=== PATIENT | female | born 1930 | race Caucasian/White ===

== ENCOUNTER 2018-09-03 11:02 | Outpatient (RCR) | payer MEDICARE ==
[~2018-09-03 11:02] MED LIST: ESTROGEN; MED FOR BLADDER; MED FOR HPTN; PREDNISONE; VICODIN; [UNRECOGNIZED DRUG - REMARK]
== END 2018-09-22 11:20 | disposition home or self-care (01) ==
PROVIDERS: ATTEND Orthopaedic Surgery Sports Medicine
DX: M50.30 Other cervical disc degeneration, unspecified cervical region (principal); M51.36 Other intervertebral disc degeneration, lumbar region

== ENCOUNTER 2022-04-21 19:41 | Inpatient (IN) | payer MEDICARE ==
[~2022-04-21] VITALS: Ht 147.3 cm; Wt 55.7 kg
[2022-04-21] VITALS (8 sets, daily range): BP systolic 106–163; BP diastolic 64–107
[2022-04-21] MEDS ORDERED: ONDANSETRON 4 MG (ZOFRAN) ORAL DISSOLVE TAB PO PRN (20:00)
[2022-04-21] MEDS ORDERED: ANTACID SUSP 30 ML UDC (MYLANTA) PO PRN (20:00)
[2022-04-21] MEDS ORDERED: diphenhydrAMINE 25 MG TAB (BENADRYL) PO PRN (20:00)
[2022-04-21] MEDS ORDERED: MELATONIN 3 MG TABLET PO PRN (20:00)
[2022-04-21] MEDS ORDERED: BISACODYL 10 MG SUPP (DULCOLAX) PR PRN (20:00)
[2022-04-21] MEDS ORDERED: polyethylene glycoL POWDER 17 GM (MIRALAX) PACK PO PRN (20:00)
[2022-04-21] MEDS ORDERED: diphenhydrAMINE 50 MG/ML INJ (BENADRYL) IVP PRN (20:00)
[2022-04-21] MEDS ORDERED: LACTULOSE SYRUP 10GM/15ML (ENULOSE) 30ML UDC PO PRN (20:00)
[2022-04-21] MEDS ORDERED: CALCIUM CARBONATE 500 MG (TUMS) TAB.CHEW PO PRN (20:00)
[2022-04-21] MEDS ORDERED: ONDANSETRON 4 MG/2 ML (SDV) Z0FRAN IV PRN (20:00)
[2022-04-21] MEDS ORDERED: MILK OF MAGNESIA 400 MG/5 ML 30 ML UDC PO PRN (20:00)
--- NOTE | 2022-04-21 20:10 | History & Physical ---
History of Present Illness HPI/Chief Complaint CC: Complete heart block HPI: This is an 89yoWF clinic patient of Dr Rueda who arrives from [facility] ER with hypotension and syncope at home. Apparently these symptoms have been ongoing for several days until she came to ER and was found to have AF with bradycardia and then EKG was evaluated to have complete heart block. HR was 33 received atropine with improvement of HR. Patient has arrived for Cardiology care. Source: patient Exam Limitations: clinical condition Date Seen 04/21/22 Time Seen by a Provider: 21:30 Attending Physician Young Guidry Jr, MD PCP Admitting Physician: Edyta Zheng DO Attending Physician: Edyta Zheng DO Referring Physician Date of Admission Home Medications & Allergies Home Medications Reviewed patient Home Medication Reconciliation performed by pharmacy medication reconciliations plating technician and/or nursing. Patients Allergies have been reviewed. Allergies Allergies Coded Allergies No Known Drug Allergies ([id number]) Past Puzysyb-Ezwhld-Rpyzik Hx Past Med/Social Hx: Reviewed Nursing Past Med/Soc Hx, Reviewed and Corrections made Patient Social History Marrital Status: Employed/Student: retired Alcohol Use: Denies Use Smoking Status: Never a Smoker Past Medical History Cardiac: Atrial Fibrillation, High Cholesterol, Hypertension Neurological: Dementia Genitourinary: Bladder Infection Review of Systems Constitutional: see HPI, dizziness, malaise, weakness EENTM: no symptoms reported Respiratory: no symptoms reported Cardiovascular: palpitations Gastrointestinal: no symptoms reported Genitourinary: no symptoms reported Musculoskeletal: no symptoms reported Skin: no symptoms reported Psychiatric/Neurological: Depressed All Other Systems Reviewed Negative Unless Noted: Yes Physical Exam Physical Exam Vital Signs Capillary Refill : Height, Weight, BMI Height: '" Weight: lbs. oz. kg; BMI Method: General Appearance: No Apparent Distress, WD/WN, Anxious, Chronically ill, Thin Eyes: Bilateral Eye Normal Inspection, Bilateral Eye PERRL HEENT: PERRL/EOMI, Normal ENT Inspection, Pharynx Normal Neck: Full Range of Motion, Normal Inspection, Non Tender, Supple, Carotid Bruit Respiratory: Chest Non Tender, Lungs Clear, Normal Breath Sounds, No Accessory Muscle Use, No Respiratory Distress Cardiovascular: No Edema, No Gallop, No JVD, No Murmur, Normal Peripheral Pulses, Bradycardia, Irregularly Irregular Gastrointestinal: Normal Bowel Sounds, No Organomegaly, No Pulsatile Mass, Non Tender, Soft Back: Normal Inspection, No CVA Tenderness, No Vertebral Tenderness Extremity: Normal Capillary Refill, Normal Inspection, Normal Range of Motion, Non Tender, No Calf Tenderness, No Pedal Edema Neurologic/Psychiatric: Alert, Oriented x3, No Motor/Sensory Deficits, Normal Mood/Affect Skin: Normal Color, Warm/Dry Lymphatic: No Adenopathy Results Results/Procedures Labs Patient resulted labs reviewed. Assessment/Plan Admission Diagnosis Assessment: AF with bradycardia and complete heart block Hypotension resolved with IVF at [facility] ER Debility Dementia Advanced age Plan: Lovenox Tely Cards consult Admission Status: Inpatient Order (span 2 midnights) Reason for Inpatient Admission: complete heart block Diagnosis/Problems Diagnosis/Problems (1) Heart block (2) Bradycardia EDYTA ZHENG DO Apr 21, 2022 20:10
[2022-04-21] MEDS ORDERED: ENOXAPARIN 60 MG/0.6 ML (LOVENOX) SYR SC ONE (22:30)
[2022-04-21] MEDS: NS IV 1000 ML 1,000 ML IV SCH (22:31)
[2022-04-21] MEDS: SENNOSIDES 8.6 MG (SENOKOT) TAB PO SCH (22:31)
[2022-04-21] MEDS: DOCUSATE SODIUM 100 MG (COLACE) CAP PO SCH (22:31)
[2022-04-21] MEDS: ACETAMINOPHEN 325 MG TABLET PO PRN (22:32)
[2022-04-21] MEDS ORDERED: RT-ALBUTEROL SULF 2.5 MG/3 ML PRE-MIX VIAL INH PRN (22:45)
[2022-04-21] MEDS: morphine INJ 4 MG/ML 1 ML (VIAL/SYRINGE) IV PRN (23:58)
[2022-04-22] VITALS (19 sets, daily range): BP systolic 98–177; BP diastolic 53–118
--- NOTE | 2022-04-22 05:06 | Progress Note ---
Subjective Date Seen by a Provider: Apr 22, 2022 Time Seen by a Provider: 09:00 Subjective/Events-last exam Pt is doing well Awaiting cardiology plan Heart rate is 63 Son is at the bedside Pt denies any pain Checked meds and labs Review of Systems General: Fatigue, Malaise Objective Exam Last Set of Vital Signs Vital Signs Date Time Temp Pulse Resp B/P (MAP) Pulse Ox O2 Delivery O2 Flow Rate FiO2 04/22/22 02:39 36.7 Room Air 04/22/22 01:00 81 04/22/22 00:00 9 92 04/21/22 22:28 21 Capillary Refill : I&O Intake and Output 04/22/22 00:00 Intake Total 0 ml Output Total 550 ml Balance -550 ml Intake Oral 0 ml Output Urine Total 550 ml Daily Weight Change Unsure General: Alert, Oriented X3, Cooperative, No Acute Distress Lungs: Clear to Auscultation, Normal Air Movement Heart: Other (marva) Neuro: Normal Gait, Normal Speech, Strength at 5/5 X4 Ext, Normal Tone Psych/Mental Status: Mental Status NL, Mood NL Assessment/Plan Assessment/Plan Assess & Plan/Chief Complaint Assessment: AF with bradycardia and complete heart block Hypotension resolved with IVF at [facility] Debility Dementia Advanced age Plan: Lovenox Tely Cards consult Diagnosis/Problems Diagnosis/Problems (1) Heart block (2) Bradycardia ANNABELLA ADAMS DO Apr 22, 2022 05:06
[2022-04-22 05:44] LABS: BASOPHILS % (AUTO) 0 % (0-10); EOSINOPHILS # (AUTO) 0.1 10^3/uL (0.0-0.3); EOSINOPHILS % (AUTO) 1 % (0-10); HEMATOCRIT 38 % (35-52); HEMOGLOBIN 12.7 g/dL (11.5-16.0); LYMPHOCYTES # (AUTO) 1.1 10^3/uL (1.0-4.0); LYMPHOCYTES % (AUTO) 14 % (12-44); MEAN CORPUSCULAR HEMOGLOBIN 32 pg (25-34); MEAN CORPUSCULAR HGB CONC 34 g/dL (32-36); MEAN CORPUSCULAR VOLUME 95 fL (80-99); MEAN PLATELET VOLUME 10.9 fL (9.0-12.2); MONOCYTES # (AUTO) 0.7 10^3/uL (0.0-1.0); MONOCYTES % (AUTO) 9 % (0-12); NEUTROPHILS # (AUTO) 5.8 10^3/uL (1.8-7.8); NEUTROPHILS % (AUTO) 75 % (42-75); PLATELET COUNT 176 10^3/uL (130-400); WHITE BLOOD COUNT 7.7 10^3/uL (4.3-11.0)
[2022-04-22 05:48] LABS: ALBUMIN 3.7 GM/DL (3.2-4.5); BILIRUBIN,TOTAL 0.7 MG/DL (0.1-1.0); CALCIUM 8.4 MG/DL (8.5-10.1); CREATININE SERUM 0.98 MG/DL (0.60-1.30); POTASSIUM 3.9 MMOL/L (3.6-5.0); TOTAL PROTEIN 5.8 GM/DL (6.4-8.2)
[2022-04-22] MEDS: DOCUSATE SODIUM 100 MG (COLACE) CAP PO SCH ×2 (07:51→22:48)
[2022-04-22] MEDS: SENNOSIDES 8.6 MG (SENOKOT) TAB PO SCH ×2 (07:51→22:48)
[2022-04-22] MEDS: ACETAMINOPHEN 325 MG TABLET PO PRN (07:51)
[2022-04-22] MEDS ORDERED: ENOXAPARIN 60 MG/0.6 ML (LOVENOX) SYR SC SCH (08:00)
--- NOTE | 2022-04-22 08:56 | Consultation-Cardiology ---
HPI-Cardiology Cardiology Consultation: Date of Consultation 04/22/22 Date of Admission 04/21/22 Attending Physician Young Guidry Jr, MD Admitting Physician Admitting Physician: Edyta Zheng DO Attending Physician: Edyta Zheng DO Consulting Physician LAURO SWEET JR, MD HPI: Time Seen by a Provider: 08:50 Chief Complaint: REASON FOR CONSULTATION: Bradycardia. I had the pleasure of seeing Patsy on the cardiac stepdown unit at [facility] in [place], [place] today. She normally follows with a corner trimmer operator at [facility] in [place], [place]. She states for the past 3 weeks she has been having a cough with increasing shortness of breath. She has had minimal sputum production. She denies fever, chills or night sweats. She had seen her primary provider but he made her stay in the car. She was not placed on any antibi otics. She has not been vaccinated for the flu or COVID. She was also having increasing weakness. Yesterday her grandson brought her to [facility] emergency room due to severe weakness and the shortness of breath. She was found to have significant bradycardia in the 30s. She was given 1 dose of IV atropine and her heart rate came up into the 60s. Because of the severe bradycardia, she was transferred to our hospital for further treatment and evaluation. She takes all of her medications on her own. She tells me she has been taking diltiazem but there is a question as to whether or not this was last filled in September 2021. From time to time she will get some fleeting chest pains across the left and right side of her chest. She also has paroxysmal nocturnal dyspnea which sounds as though may be chronic. She denies orthopnea. She has had palpitations for years which mainly bother her at night and feel like her heart is racing. She denies syncope or lower extremity edema. Because of the bradycardia, a cardiology consultation was requested. Certain portions of this document may have been dictated utilizing voice recog nition technology. Inherent to this technology, typographical and grammatical errors may exist. As much as I am diligent to identify and correct these mistakes, some errors may remain in the document. Review of Systems-Cardiology Review of Systems Other comments Review of 10 organ systems is as per the history of present illness, otherwise negative. All Other Systems Reviewed Negative Unless Noted: Yes BBA-Wvkbxy-Xiwjmy Hx Patient Social History Marrital Status: Employed/Student: retired Smoking Status: Never a Smoker Have you traveled recently?: No Alcohol Use?: No Pt feels they are or have been: No Past Medical History PMH As described under Assessment. Family Medical History Family Medical History: Her brother and mother both had heart disease but at an older age. Allergies and Home Medications Allergies Coded Allergies: Penicillins (Verified Allergy, Intermediate, Rash, 04/21/22) Patient Home Medication List Home Medication List Reviewed: Yes [Estrogen] , (Reported) Entered as Reported by: MILAGROS LUTHER on 03/25/09912 [Med For Bladder] , (Reported) Entered as Reported by: MILAGROS LUTHER on 03/25/09912 [Med For Hptn] , (Reported) Entered as Reported by: MILAGROS LUTHER on 03/25/09912 [Prednisone] , (Reported) Entered as Reported by: MILAGROS LUTHER on 03/25/09914 [Vicodin] , (Reported) Entered as Reported by: MILAGROS LUTHER on 03/25/09913 Exam Vital Signs Vital Signs Date Time Temp Pulse Resp B/P (MAP) Pulse Ox O2 Delivery O2 Flow Rate FiO2 04/22/22 08:26 92 Room Air 0.00 04/22/22 07:57 36.5 64 14 136/70 (92) 04/21/22 22:28 21 Physical Exam General: Alert. No acute distress. Well nourished and appears stated age. Eye: Extraocular movements are intact. Conjunctivae are clear. There are no xanthelasma. HENT: Normocephalic. Atraumatic. Carotid pulsations 2/2 without bruits. Neck: Jugular venous pressure does not appear elevated. No thyromegaly a ppreciated. Respiratory: Lungs are clear to auscultation. Respirations are non-labored. Breath sounds are equal. Symmetrical chest wall expansion. Cardiovascular: Normal rate. Irregular rhythm. 2/6 systolic ejection murmur. No gallop. Point of maximal impulse is not appear displaced. Good pulses equal in all extremities. No edema. Gastrointestinal: Soft. Normal bowel sounds. Skin: Skin turgor is normal. There is no pallor. Musculoskeletal: No kyphosis or scoliosis appreciated. Neurologic: Alert and oriented to person, place, time. Cranial nerves 3-12 appear grossly intact. The patient has good motor tone strength in the upper and lower extremities bilaterally. Psychiatric: Cooperative. Appropriate mood & affect. Labs Laboratory Tests Test 04/22/22 05:20 Range/Units White Blood Count 7.7 4.3-11.0 10^3/uL Red Blood Count 3.97 3.80-5.11 10^6/uL Hemoglobin 12.7 11.5-16.0 g/dL Hematocrit 38 35-52 % Mean Corpuscular Volume 95 80-99 fL Mean Corpuscular Hemoglobin 32 25-34 pg Mean Corpuscular Hemoglobin Concent 34 32-36 g/dL Red Cell Distribution Width 13.9 10.0-14.5 % Platelet Count 176 130-400 10^3/uL Mean Platelet Volume 10.9 9.0-12.2 fL Immature Granulocyte % (Auto) 0 % Neutrophils (%) (Auto) 75 42-75 % Lymphocytes (%) (Auto) 14 12-44 % Monocytes (%) (Auto) 9 0-12 % Eosinophils (%) (Auto) 1 0-10 % Basophils (%) (Auto) 0 0-10 % Neutrophils # (Auto) 5.8 1.8-7.8 10^3/uL Lymphocytes # (Auto) 1.1 1.0-4.0 10^3/uL Monocytes # (Auto) 0.7 0.0-1.0 10^3/uL Eosinophils # (Auto) 0.1 0.0-0.3 10^3/uL Basophils # (Auto) 0.0 0.0-0.1 10^3/uL Immature Granulocyte # (Auto) 0.0 0.0-0.1 10^3/uL Sodium Level 140 135-145 MMOL/L Potassium Level 3.9 3.6-5.0 MMOL/L Chloride Level 108 H 98-107 MMOL/L Carbon Dioxide Level 21 21-32 MMOL/L Anion Gap 11 5-14 MMOL/L Blood Urea Nitrogen 12 7-18 MG/DL Creatinine 0.98 0.60-1.30 MG/DL Estimat Glomerular Filtration Rate 55 BUN/Creatinine Ratio 12 Glucose Level 86 70-105 MG/DL Calcium Level 8.4 L 8.5-10.1 MG/DL Corrected Calcium 8.6 8.5-10.1 MG/DL Total Bilirubin 0.7 0.1-1.0 MG/DL Aspartate Amino Transf (AST/SGOT) 17 5-34 U/L Alanine Aminotransferase (ALT/SGPT) 12 0-55 U/L Alkaline Phosphatase 77 40-136 U/L Total Protein 5.8 L 6.4-8.2 GM/DL Albumin 3.7 3.2-4.5 GM/DL Triglycerides Level 73 <150 MG/DL Cholesterol Level 162 < 200 MG/DL LDL Cholesterol Direct 98 1-129 MG/DL VLDL Cholesterol 15 5-40 MG/DL HDL Cholesterol 49 40-60 MG/DL ECG Impression ECG Comment Electrocardiogram from this morning shows atrial fibrillation with a ventricular rate of approximately 70 bpm with right axis deviation and nonspecific ST-T wave changes. Diagnosis/Problems Diagnosis/Problems (1) Complete heart block Assessment & Plan: She appeared to have intermittent complete heart block at the outside hospital. This improved with 1 dose of intravenous atropine. Her heart rates here in our hospital have remained above 50 bpm. This may just be due to diltiazem she was taking at home. I will need our cd technician to verify whether or not she has actually been taking this medication. At this point in time, I do not see any indication for temporary or permanent pacing. (2) Permanent atrial fibrillation Assessment & Plan: She has had atrial fibrillation for a number of years. She has been on Xarelto for stroke prophylaxis and diltiazem for her hypertension. The diltiazem may be causing the bradycardia but I am not completely sure she has been taking this. For the time being, I recommend holding both Xarelto and diltiazem and till we determine whether or not her heart rate recovers without diltiazem. If she has not been taking diltiazem at home, and there is a chance she may need a permanent pacemaker. (3) Primary hypertension Assessment & Plan: She tells me she has been taking diltiazem for her hypertension. As above, due to the bradycardia, I will stop this medication. If she develops recurrent hypertension, I would consider starting an PETER inhibitor or ARB. (4) Shortness of breath Assessment & Plan: Etiology unclear. She has not been vaccinated for the flu or COVID. I had the nurse order both flu test and COVID test. I will also a chest x-ray and echocardiogram. LAURO SWEET JR, MD Apr 22, 2022 08:56
[2022-04-22] MEDS ORDERED: MECL-149 PO (10:25)
[2022-04-22] MEDS ORDERED: DILT180C85 PO (10:25)
[2022-04-22] MEDS ORDERED: DICL100G61 TP (10:25)
[2022-04-22] MEDS ORDERED: OMEP40CA6 PO (10:25)
[2022-04-22] MEDS ORDERED: FURO20TA4 PO (10:25)
[2022-04-22] MEDS ORDERED: FLUO10CA33 PO (10:25)
[2022-04-22] MEDS ORDERED: LORA-404 PO (10:25)
[2022-04-22] MEDS ORDERED: ACHD5005 PO (10:25)
[2022-04-22] MEDS ORDERED: RIVA20TA2 PO (10:25)
[2022-04-22] MEDS ORDERED: ACET-2267 PO (10:25)
[2022-04-22] MEDS: NS IV 1000 ML 1,000 ML IV SCH (12:16)
--- NOTE | 2022-04-22 14:49 | Diagnostic Imaging Report ---
INDICATION: Shortness of breath. PA and lateral chest obtained at 0928 a.m. There is cardiomegaly. There is no focal infiltrate or pneumothorax or pleural fluid. There are chronic appearing increased interstitial markings. IMPRESSION: Cardiomegaly with chronic appearing increased interstitial markings. No overt consolidation or pleural fluid. Dictated by: Dictated on workstation # [id number]
[2022-04-22] MEDS ORDERED: LOSARTAN 50 MG (COZAAR) TAB PO NR (16:30)
[2022-04-22] MEDS: morphine INJ 4 MG/ML 1 ML (VIAL/SYRINGE) IV PRN (16:39)
[2022-04-23] VITALS: BP 142/72
[2022-04-23] MEDS: NS IV 1000 ML 1,000 ML IV SCH ×2 (03:36→04:07)
[2022-04-23 04:00] VITALS: BP_SYST 133; BP_SYST 162; BP_DIAS 73; BP_DIAS 78
[2022-04-23 04:14] VITALS: BP 178/97
[2022-04-23] MEDS ORDERED: LOSARTAN 50 MG (COZAAR) TAB ONE (04:52)
[2022-04-23] MEDS: morphine INJ 4 MG/ML 1 ML (VIAL/SYRINGE) IV PRN (05:01)
[2022-04-23 05:54] LABS: BASOPHILS % (AUTO) 1 % (0-10); EOSINOPHILS # (AUTO) 0.1 10^3/uL (0.0-0.3); EOSINOPHILS % (AUTO) 2 % (0-10); HEMATOCRIT 41 % (35-52); HEMOGLOBIN 13.4 g/dL (11.5-16.0); LYMPHOCYTES # (AUTO) 1.5 10^3/uL (1.0-4.0); LYMPHOCYTES % (AUTO) 34 % (12-44); MEAN CORPUSCULAR HEMOGLOBIN 32 pg (25-34); MEAN CORPUSCULAR HGB CONC 33 g/dL (32-36); MEAN CORPUSCULAR VOLUME 96 fL (80-99); MEAN PLATELET VOLUME 10.6 fL (9.0-12.2); MONOCYTES # (AUTO) 0.4 10^3/uL (0.0-1.0); MONOCYTES % (AUTO) 9 % (0-12); NEUTROPHILS # (AUTO) 2.4 10^3/uL (1.8-7.8); NEUTROPHILS % (AUTO) 56 % (42-75); PLATELET COUNT 185 10^3/uL (130-400); WHITE BLOOD COUNT 4.4 10^3/uL (4.3-11.0)
[2022-04-23 06:21] LABS: ALBUMIN 3.9 GM/DL (3.2-4.5); CALCIUM 8.7 MG/DL (8.5-10.1); CREATININE SERUM 0.9 MG/DL (0.60-1.30); POTASSIUM 3.4 MMOL/L (3.6-5.0); TOTAL PROTEIN 6.2 GM/DL (6.4-8.2)
--- NOTE | 2022-04-23 06:53 | Progress Note ---
Subjective Date Seen by a Provider: Apr 23, 2022 Time Seen by a Provider: 09:00 Objective Exam Last Set of Vital Signs Vital Signs Date Time Temp Pulse Resp B/P (MAP) Pulse Ox O2 Delivery O2 Flow Rate FiO2 04/23/22 04:14 78 18 178/97 (124) 92 Room Air 04/23/22 04:00 36.7 04/22/22 08:26 0.00 04/21/22 22:28 21 Capillary Refill : I&O Intake and Output 04/23/22 00:00 Intake Total 620 ml Output Total 1725 ml Balance -1105 ml Intake Oral 620 ml Output Urine Total 1725 ml Results Lab Laboratory Tests 04/23/22 05:34: White Blood Count 4.4, Red Blood Count 4.21, Hemoglobin 13.4, Hematocrit 41, Mean Corpuscular Volume 96, Mean Corpuscular Hemoglobin 32, Mean Corpuscular Hemoglobin Concent 33, Red Cell Distribution Width 14.4, Platelet Count 185, Mean Platelet Volume 10.6, Immature Granulocyte % (Auto) 0, Neutrophils (%) (Auto) 56, Lymphocytes (%) (Auto) 34, Monocytes (%) (Auto) 9, Eosinophils (%) (A uto) 2, Basophils (%) (Auto) 1, Neutrophils # (Auto) 2.4, Lymphocytes # (Auto) 1.5, Monocytes # (Auto) 0.4, Eosinophils # (Auto) 0.1, Basophils # (Auto) 0.0, Immature Granulocyte # (Auto) 0.0, Sodium Level 144, Potassium Level 3.4L, Chloride Level 112H, Carbon Dioxide Level 21, Anion Gap 11, Blood Urea Nitrogen 10, Creatinine 0.90, Estimat Glomerular Filtration Rate 61, BUN/Creatinine Ratio 11, Glucose Level 90, Calcium Level 8.7, Corrected Calcium 8.8, Total Bilirubin 1.0, Aspartate Amino Transf (AST/SGOT) 16, Alanine Aminotransferase (ALT/SGPT) 10, Alkaline Phosphatase 80, Total Protein 6.2L, Albumin 3.9 Assessment/Plan Assessment/Plan Assess & Plan/Chief Complaint Assessment: AF with bradycardia and complete heart block Hypotension resolved with IVF at [facility] ER Debility Dementia Advanced age Plan: Harvest consult Diagnosis/Problems Diagnosis/Problems (1) Heart block (2) Bradycardia ANNABELLA ADAMS DO Apr 23, 2022 06:53
[2022-04-23] MEDS ORDERED: KCL 10 MEQ TAB (MICRO K) PO SCH (07:00)
[2022-04-23 07:58] VITALS: BP 140/79
[2022-04-23] MEDS: DOCUSATE SODIUM 100 MG (COLACE) CAP PO SCH (09:00)
[2022-04-23] MEDS: SENNOSIDES 8.6 MG (SENOKOT) TAB PO SCH (09:00)
[2022-04-23] MEDS ORDERED: LOSARTAN 50 MG (COZAAR) TAB PO SCH (09:00)
--- NOTE | 2022-04-23 09:46 | Cardiology Progress Note ---
Progress Note-Cardiology Events since last exam Date Seen by Provider: Apr 23, 2022 Time Seen by Provider: 09:46 Events since last exam I am following her due to permanent atrial fibrillation and bradycardia. Her heart rates have improved since stopping diltiazem. Her weakness and fatigue have improved. She would like to go home. She denies chest discomfort, dyspnea at rest, palpitations, syncope, or ankle edema. Certain portions of this document may have been dictated utilizing voice recognition technology. Inherent to this technology, typographical and grammatical errors may exist. As much as I am diligent to identify and correct these mistakes, some errors may remain in the document. Vitals Last set of Vitals Signs Vital Signs 04/21/22 04/22/22 04/23/22 04/23/22 22:28 08:26 07:27 07:58 Temp 37.0 Pulse 61 Resp 21 B/P (MAP) 140/79 (99) Pulse Ox 96 O2 Delivery Room Air O2 Flow Rate 0.00 FiO2 21 Labs Labs Laboratory Tests 04/23/22 05:34 Exam Vital Signs Vital Signs Date Time Temp Pulse Resp B/P (MAP) Pulse Ox O2 Delivery O2 Flow Rate FiO2 04/23/22 07:58 37.0 61 21 140/79 (99) 96 04/23/22 07:27 Room Air 04/22/22 08:26 0.00 04/21/22 22:28 21 Physical Exam General: Alert. No acute distress. Eye: No xanthelasma. HENT: Normocephalic. Neck: Jugular venous pressure does not appear elevated. Respiratory: Lungs are clear to auscultation. Respirations are non-labored. Ramya ath sounds are equal. Symmetrical chest wall expansion. Cardiovascular: Normal rate. Irregular rhythm. 2/6 systolic ejection murmur. No gallop. No edema. Gastrointestinal: Soft. Normal bowel sounds. Skin: Warm. Dry. Neurologic: Alert and oriented to person, place, time. Cranial nerves 3-11 grossly intact. Psychiatric: Cooperative. Appropriate mood & affect. Labs Laboratory Tests Test 04/23/22 05:34 Range/Units White Blood Count 4.4 4.3-11.0 10^3/uL Red Blood Count 4.21 3.80-5.11 10^6/uL Hemoglobin 13.4 11.5-16.0 g/dL Hematocrit 41 35-52 % Mean Corpuscular Volume 96 80-99 fL Mean Corpuscular Hemoglobin 32 25-34 pg Mean Corpuscular Hemoglobin Concent 33 32-36 g/dL Red Cell Distribution Width 14.4 10.0-14.5 % Platelet Count 185 130-400 10^3/uL Mean Platelet Volume 10.6 9.0-12.2 fL Immature Granulocyte % (Auto) 0 % Neutrophils (%) (Auto) 56 42-75 % Lymphocytes (%) (Auto) 34 12-44 % Monocytes (%) (Auto) 9 0-12 % Eosinophils (%) (Auto) 2 0-10 % Basophils (%) (Auto) 1 0-10 % Neutrophils # (Auto) 2.4 1.8-7.8 10^3/uL Lymphocytes # (Auto) 1.5 1.0-4.0 10^3/uL Monocytes # (Auto) 0.4 0.0-1.0 10^3/uL Eosinophils # (Auto) 0.1 0.0-0.3 10^3/uL Basophils # (Auto) 0.0 0.0-0.1 10^3/uL Immature Granulocyte # (Auto) 0.0 0.0-0.1 10^3/uL Sodium Level 144 135-145 MMOL/L Potassium Level 3.4 L 3.6-5.0 MMOL/L Chloride Level 112 H 98-107 MMOL/L Carbon Dioxide Level 21 21-32 MMOL/L Anion Gap 11 5-14 MMOL/L Blood Urea Nitrogen 10 7-18 MG/DL Creatinine 0.90 0.60-1.30 MG/DL Estimat Glomerular Filtration Rate 61 BUN/Creatinine Ratio 11 Glucose Level 90 70-105 MG/DL Calcium Level 8.7 8.5-10.1 MG/DL Corrected Calcium 8.8 8.5-10.1 MG/DL Total Bilirubin 1.0 0.1-1.0 MG/DL Aspartate Amino Transf (AST/SGOT) 16 5-34 U/L Alanine Aminotransferase (ALT/SGPT) 10 0-55 U/L Alkaline Phosphatase 80 40-136 U/L Total Protein 6.2 L 6.4-8.2 GM/DL Albumin 3.9 3.2-4.5 GM/DL Diagnosis/Problems Diagnosis/Problems (1) Complete heart block Assessment & Plan: She appeared to have intermittent complete heart block at the outside hospital. This improved with 1 dose of intravenous atropine at the outside ER. Her heart rates here in our hospital have remained above 50 bpm. This may just be due to diltiazem she was taking at home. Her diltiazem has been discontinued. She should not take this any longer. I explained this to the patient and her daughter was at the bedside this morning. (2) Permanent atrial fibrillation Assessment & Plan: She has had atrial fibrillation for a number of years. She has been on Xarelto for stroke prophylaxis and diltiazem for her hypertension. As above, her bradycardia resolved when the diltiazem was discontinued. She has not had any significant tachycardia since stopping the diltiazem. From a cardiac standpoint, she can be discharged home. She should follow-up with her regular furniture upholsterer apprentice in approximately 1 month. (3) Primary hypertension Assessment & Plan: She tells me she has been taking diltiazem for her hypertension. As above, due to the bradycardia, I stopped this medication. She did develop hypertension when the diltiazem was stopped and I have started her on intermediate dose losartan. I sent a prescription for this to her regular outpatient pharmacy. (4) Shortness of breath Assessment & Plan: Etiology unclear. She has not been vaccinated for the flu or COVID. I ordered both flu test and COVID test on 04/22 and it appears as though these may not have been done. I have asked her nurse from today to send these off to the lab. Her chest x-ray did not show any evidence of heart failure or infiltrate. LAURO SWEET JR, MD Apr 23, 2022 09:46
[2022-04-23] MEDS ORDERED: LOSA50TA63 PO (09:51)
--- NOTE | 2022-04-23 10:14 | Discharge Summary ---
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 Hypotension [place] [facility] Debility Dementia Advanced age Discharge Summary Discharge Physical Examination Allergies: Coded Allergies: Penicillins (Verified Allergy, Intermediate, Rash, 04/21/22) Vitals & I&Os Vital Signs Date Time Temp Pulse Resp B/P (MAP) Pulse Ox O2 Delivery O2 Flow Rate FiO2 04/23/22 12:15 165/87 04/23/22 08:00 97 Room Air 04/23/22 07:58 37.0 61 21 04/22/22 08:26 0.00 04/21/22 22:28 21 General Appearance: Alert, Oriented X3, Cooperative Respiratory: Clear to Auscultation Psych/Mental Status: Mental Status NL Hospital Course Was the Problem List Reviewed?: Yes Pt had an uneventful hospital course. She was admitted for severe bradycardia, syncope, and what appeared to be complete heart block. Pt was supported. Pt was taken off Diltiazem. Cardiology Dr. Vaughn evaluated her. Echocardiogram was reviewed. Pt was doing very well and discharged in improved condition. Labs (last 24 hrs) Laboratory Tests 04/22/22 05:20: White Blood Count 7.7, Red Blood Count 3.97, Hemoglobin 12.7, Hematocrit 38, Mean Corpuscular Volume 95, Mean Corpuscular Hemoglobin 32, Mean Corpuscular Hemoglobin Concent 34, Red Cell Distribution Width 13.9, Platelet Count 176, Mean Platelet Volume 10.9, Immature Granulocyte % (Auto) 0, Neutrophils (%) (Auto) 75, Lymphocytes (%) (Auto) 14, Monocytes (%) (Auto) 9, Eosinophils (%) (Auto) 1, Basophils (%) (Auto) 0, Neutrophils # (Auto) 5.8, Lymphocytes # (Auto) 1.1, Monocytes # (Auto) 0.7, Eosinophils # (Auto) 0.1, Basophils # (Auto) 0.0, Immature Granulocyte # (Auto) 0.0, Sodium Level 140, Potassium Level 3.9, Chloride Level 108H, Carbon Dioxide Level 21, Anion Gap 11, Blood Urea Nitrogen 12, Creatinine 0.98, Estimat Glomerular Filtration Rate 55, BUN/Creatinine Ratio 12, Glucose Level 86, Calcium Level 8.4L, Corrected Calcium 8.6, Total Bilirubin 0.7, Aspartate Amino Transf (AST/SGOT) 17, Alanine Aminotransferase (ALT/SGPT) 12, Alkaline Phosphatase 77, Total Protein 5.8L, Albumin 3.7, Triglycerides Level 73, Cholesterol Level 162, LDL Cholesterol Direct 98, VLDL Cholesterol 15, HDL Cholesterol 49, Thyroid Stimulating Hormone (TSH) 2.58 04/23/22 05:34: White Blood Count 4.4, Red Blood Count 4.21, Hemoglobin 13.4, Hematocrit 41, Mean Corpuscular Volume 96, Mean Corpuscular Hemoglobin 32, Mean Corpuscular Hemoglobin Concent 33, Red Cell Distribution Width 14.4, Platelet Count 185, Mean Platelet Volume 10.6, Immature Granulocyte % (Auto) 0, Neutrophils (%) (Auto) 56, Lymphocytes (%) (Auto) 34, Monocytes (%) (Auto) 9, Eosinophils (%) (Auto) 2, Basophils (%) (Auto) 1, Neutrophils # (Auto) 2.4, Lymphocytes # (Auto) 1.5, Monocytes # (Auto) 0.4, Eosinophils # (Auto) 0.1, Basophils # (Auto) 0.0, Immature Granulocyte # (Auto) 0.0, Sodium Level 144, Potassium Level 3.4L, Chloride Level 112H, Carbon Dioxide Level 21, Anion Gap 11, Blood Urea Nitrogen 10, Creatinine 0.90, Estimat Glomerular Filtration Rate 61, BUN/Creatinine Ratio 11, Glucose Level 90, Calcium Level 8.7, Corrected Calcium 8.8, Total Bilirubin 1.0, Aspartate Amino Transf (AST/SGOT) 16, Alanine Aminotransferase (ALT/SGPT) 10, Alkaline Phosphatase 80, Total Protein 6.2L, Albumin 3.9 Pending Labs Laboratory Tests 04/22/22 05:20: White Blood Count 7.7, Red Blood Count 3.97, Hemoglobin 12.7, Hematocrit 38, Mean Corpuscular Volume 95, Mean Corpuscular Hemoglobin 32, Mean Corpuscular Hemoglobin Concent 34, Red Cell Distribution Width 13.9, Platelet Count 176, Mean Platelet Volume 10.9, Immature Granulocyte % (Auto) 0, Neutrophils (%) (Auto) 75, Lymphocytes (%) (Auto) 14, Monocytes (%) (Auto) 9, Eosinophils (%) (Auto) 1, Basophils (%) (Auto) 0, Neutrophils # (Auto) 5.8, Lymphocytes # (Auto) 1.1, Monocytes # (Auto) 0.7, Eosinophils # (Auto) 0.1, Basophils # (Auto) 0.0, Immature Granulocyte # (Auto) 0.0, Sodium Level 140, Potassium Level 3.9, Chloride Level 108, Carbon Dioxide Level 21, Anion Gap 11, Blood Urea Nitrogen 12, Creatinine 0.98, Estimat Glomerular Filtration Rate 55, BUN/Creatinine Ratio 12, Glucose Level 86, Calcium Level 8.4, Corrected Calcium 8.6, Total Bilirubin 0.7, Aspartate Amino Transf (AST/SGOT) 17, Alanine Aminotransferase (ALT/SGPT) 12, Alkaline Phosphatase 77, Total Protein 5.8, Albumin 3.7, Triglycerides Level 73, Cholesterol Level 162, LDL Cholesterol Direct 98, VLDL Cholesterol 15, HDL Cholesterol 49, Thyroid Stimulating Hormone (TSH) 2.58 04/23/22 05:34: White Blood Count 4.4, Red Blood Count 4.21, Hemoglobin 13.4, Hematocrit 41, Mean Corpuscular Volume 96, Mean Corpuscular Hemoglobin 32, Mean Corpuscular Hemoglobin Concent 33, Red Cell Distribution Width 14.4, Platelet Count 185, Mean Platelet Volume 10.6, Immature Granulocyte % (Auto) 0, Neutrophils (%) (Auto) 56, Lymphocytes (%) (Auto) 34, Monocytes (%) (Auto) 9, Eosinophils (%) (Auto) 2, Basophils (%) (Auto) 1, Neutrophils # (Auto) 2.4, Lymphocytes # (Auto) 1.5, Monocytes # (Auto) 0.4, Eosinophils # (Auto) 0.1, Basophils # (Auto) 0.0, Immature Granulocyte # (Auto) 0.0, Sodium Level 144, Potassium Level 3.4, Chloride Level 112, Carbon Dioxide Level 21, Anion Gap 11, Blood Urea Nitrogen 10, Creatinine 0.90, Estimat Glomerular Filtration Rate 61, BUN/Creatinine Ratio 11, Glucose Level 90, Calcium Level 8.7, Corrected Calcium 8.8, Total Bilirubin 1.0, Aspartate Amino Transf (AST/SGOT) 16, Alanine Aminotransferase (ALT/SGPT) 10, Alkaline Phosphatase 80, Total Protein 6.2, Albumin 3.9 Discharge Home Medications: Active Scripts Active Losartan Potassium 50 Mg Tablet 50 Mg PO DAILY Reported Arthritis Pain (Diclofenac Sodium) 1 % Gel..gram. 1 Applic TP UD PRN Furosemide 20 Mg Tablet 20 Mg PO DAILY LAST FILLED 09-24-2021 #135/135 DAY SUPPLY Omeprazole 40 Mg Capsule.dr 40 Mg PO DAILY PRN BREAKS OPEN CAPSULE AND MIXES WITH PUDDING Fluoxetine HCl 10 Mg Capsule 10 Mg PO DAILY LAST FILLED 02-24-2022 #30/30 DAY SUPPLY Tylenol Extra Strength (Acetaminophen) 500 Mg Tablet 500-1,000 Mg PO Q8H PRN Meclizine HCl 25 Mg Tablet 25 Mg PO TID PRN Hydrocodone-Acetamin 5-325 mg (Hydrocodone/Acetaminophen) 5 Mg-325 Mg Tablet 1 Ea PO BID PRN Xarelto Tablet (Rivaroxaban) 20 Mg Tablet 20 Mg PO DAILY Ativan (Lorazepam) 0.5 Mg Tablet 0.5 Mg PO HS PRN Instructions to patient/family Please see electronic discharge instructions given to patient. Diagnosis/Problems Diagnosis/Problems (1) Heart block (2) Bradycardia ANNABELLA ADAMS DO Apr 23, 2022 10:14
[2022-04-23 12:15] VITALS: BP 165/87
--- NOTE | 2022-04-23 13:36 | Physical Therapy Progress Note ---
Therapy Progress Note Order for PT evaluation received. Attempted evaluation but patient was already discharged from this facility. VERENICE MALAVE PT Apr 23, 2022 13:36
[2022-04-24] MEDS ORDERED: FUROSEMIDE 20 MG (LASIX) TAB PO SCH (09:00)
[2022-04-24] MEDS ORDERED: RIVAROXABAN 20 MG TABLET (XARELTO) PO SCH (09:00)
== END 2022-04-23 12:15 | disposition home or self-care (01) | DRG 310 ==
LOC: CSD 21:32
PROVIDERS: ADMIT Internal Medicine; ATTEND Internal Medicine
DX: I44.2 Atrioventricular block, complete (principal); I48.21 Permanent atrial fibrillation; I95.9 Hypotension, unspecified; E78.00 Pure hypercholesterolemia, unspecified; I10 Essential (primary) hypertension; F03.90 Unspecified dementia, unspecified severity, without behavioral disturbance, psychotic disturbance, mood disturbance, and anxiety; F32.A Depression, unspecified; Z28.310 Unvaccinated for COVID-19; Z66 Do not resuscitate; Z28.9 Immunization not carried out for unspecified reason; Z28.39 Other underimmunization status; Z88.0 Allergy status to penicillin; Z79.890 Hormone replacement therapy; Z79.52 Long term (current) use of systemic steroids; T46.1X5A Adverse effect of calcium-channel blockers, initial encounter
CPT/HCPCS: 36415; 71046; 80053; 80061; 84443; 85025; 93005; 93306